=== PATIENT | male | born 1980 | race Caucasian/White ===

== ENCOUNTER 2021-05-23 20:20 | Emergency (ER) | payer OTHER ==
[~2021-05-23] VITALS: Ht 180.3 cm; Wt 104.3 kg
[2021-05-23] MEDS ORDERED: AZITHROMYCIN250 MG PO (22:37)
[2021-05-23] MEDS ORDERED: DEXAMETHASONE SOD PHOS INJ 4 MG/ML SDV ONE (22:45)
[2021-05-23] MEDS ORDERED: DEXAMETHASONE SOD PHOS INJ 4 MG/ML SDV IM ONE (22:45)
== END 2021-05-23 23:10 | disposition home or self-care (01) ==
LOC: FSED 22:05
DX: J04.0 Acute laryngitis (principal); J06.9 Acute upper respiratory infection, unspecified; R05.9 Cough, unspecified
CPT/HCPCS: 83518 ×2; 87400; 99283; J1100

== ENCOUNTER 2021-05-28 10:44 | Emergency (ER) | payer OTHER ==
[~2021-05-28] VITALS: Ht 180.3 cm; Wt 104.3 kg
[~2021-05-28 10:44] MED LIST: AZITHROMYCIN250 MG PO
[2021-05-28] MEDS ORDERED: THERAFLU FLU &1 EAC1 PO (11:51)
[2021-05-28] MEDS ORDERED: PROVENTIL HFA6.7 GM INH (11:51)
[2021-05-28] MEDS ORDERED: LORATADINE10 MG PO (11:51)
[2021-05-28] MEDS ORDERED: CEFDINIR300 MG PO (11:51)
== END 2021-05-28 12:24 | disposition home or self-care (01) ==
LOC: FSED 11:25
DX: R05.9 Cough, unspecified (principal); J40 Bronchitis, not specified as acute or chronic; J06.9 Acute upper respiratory infection, unspecified
CPT/HCPCS: 71046; 99283